=== PATIENT | male | born 1975 | race Caucasian/White ===

== ENCOUNTER 2019-04-12 13:49 | Observation (INO) | payer BC ==
[2019-04-12] MEDS ORDERED: solu-MEDROL 125 MG IV ONE ×2 (14:04→20:15)
[2019-04-12] MEDS ORDERED: Pepcid 20 MG VIAL IV ONE ×2 (14:04→14:12)
[2019-04-12] MEDS ORDERED: BENADRYL 50 MG/ML IV ONE (14:04)
--- NOTE | 2019-04-12 14:04 | ERPHSYRPT ---
- History of Present Illness Time Seen by Provider: 04/12/19 13:55 Source: patient, family Exam Limitations: no limitations Patient Subjective Stated Complaint: allergic reaction/swollen throat Triage Nursing Assessment: Patient ambulated into ED and transferred self to bed. Patient A+O X 3. Patient complains of swollen throat upon waking up at 0500. Patient denies pain or discomfort. Patient states he feels like he is having trouble swallowing causing him to panic. Patient's lungs clear a/p gloria. Throat noted to be swollen and red. O2 96% on room air. Patient denies any new meds or foods. Physician History: complaints of sore throat and a swollen uvula this morning. No shortness of breath. No rash Timing/Duration: today Severity: moderate Modifying Factors: Improves With: nothing Associated Symptoms: No nausea, No vomiting, No abdominal pain, No shortness of breath, No heartburn, No diaphoresis, No cough, No chills, No chest pain, No fever, No headaches, No loss of appetite, No malaise, No syncope, No seizure Allergies/Adverse Reactions: No Known Drug Allergies Allergy (Verified 04/12/19 13:52) Home Medications: Levothyroxine Sodium 1 tab PO DAILY 04/12/19 [History] Hx Tetanus, Diphtheria Vaccination/Date Given: Yes Hx Influenza Vaccination/Date Given: No Hx Pneumococcal Vaccination/Date Given: No Immunizations Up to Date: Yes - Review of Systems Constitutional: No Fever, No Chills Eyes: No Symptoms Ears, Nose, & Throat: No Symptoms, Throat Pain, Other (sswollen uvula) Respiratory: No Cough, No Dyspnea Cardiac: No Chest Pain, No Edema, No Syncope Abdominal/Gastrointestinal: No Abdominal Pain, No Nausea, No Vomiting, No Diarrhea Genitourinary Symptoms: No Dysuria Musculoskeletal: No Back Pain, No Neck Pain Skin: No Rash Neurological: No Dizziness, No Focal Weakness, No Sensory Changes Psychological: No Symptoms Endocrine: No Symptoms All Other Systems: Reviewed and Negative - Past Medical History Pertinent Past Medical History: Yes Neurological History: No Pertinent History ENT History: No Pertinent History Cardiac History: No Pertinent History Respiratory History: No Pertinent History Endocrine Medical History: Hypoglycemia Musculoskeletal History: No Pertinent History GI Medical History: No Pertinent History History: No Pertinent History Psycho-Social History: No Pertinent History Male Reproductive Disorders: No Pertinent History - Past Surgical History Past Surgical History: Yes Neuro Surgical History: No Pertinent History Cardiac: No Pertinent History Respiratory: No Pertinent History Gastrointestinal: No Pertinent History Genitourinary: No Pertinent History Musculoskeletal: No Pertinent History Male Surgical History: No Pertinent History Other Surgical History: ortho surgery - Social History Smoking Status: Former smoker Exposure to second hand smoke: No Drug Use: none Patient Lives Alone: No - Nursing Vital Signs Nursing Vital Signs: Initial Vital Signs Temperature 97.5 F 04/12/19 13:53 Pulse Rate 88 04/12/19 13:53 Respiratory Rate 18 04/12/19 13:53 Blood Pressure 148/118 04/12/19 13:53 O2 Sat by Pulse Oximetry 96 04/12/19 13:53 Pain Scale Pain Intensity 0 - Physical Exam General Appearance: no apparent distress, alert Eye Exam: PERRL/EOMI, eyes nml inspection Ears, Nose, Throat Exam: normal ENT inspection, TMs normal, pharynx normal, moist mucous membranes, TM abnormal (R), pharyngeal erythema, other (mild swelling of uvula.uvula is raised and inflamed. No clinical evidence of epiglottitis.) Neck Exam: normal inspection, non-tender, supple, full range of motion Respiratory Exam: normal breath sounds, lungs clear, No respiratory distress Cardiovascular Exam: regular rate/rhythm, normal heart sounds, normal peripheral pulses Gastrointestinal/Abdomen Exam: soft, normal bowel sounds, No tenderness, No mass Back Exam: normal inspection, normal range of motion, No CVA tenderness, No vertebral tenderness Extremity Exam: normal inspection, normal range of motion, pelvis stable Neurologic Exam: alert, oriented x 3, cooperative, normal mood/affect, nml cerebellar function, nml station & gait, sensation nml, No motor deficits Skin Exam: normal color, warm, dry, No rash Lymphatic Exam: No adenopathy SpO2: 96 Ordered Tests: Active Orders 24 hr Category Date Time Status IV Insertion STAT Care 04/12/19 14:04 Active Medication Summary Discontinued Medications Generic Name Dose Route Start Last Admin Trade Name Freq PRN Reason Stop Dose Admin Azithromycin 500 mg 04/12/19 15:23 Zithromax 250 Mg Tablet PO 04/12/19 15:24 STAT ONE Diphenhydramine HCl 25 mg 04/12/19 14:04 04/12/19 14:17 Benadryl 50 Mg/Ml IV 04/12/19 14:05 25 mg STAT ONE Administration Diphenhydramine HCl Confirm 04/12/19 14:12 Benadryl 50 Mg/Ml Administered 04/12/19 14:13 Dose 50 mg .ROUTE .STK-MED ONE Famotidine 20 mg 04/12/19 14:04 04/12/19 14:14 Pepcid 20 Mg Vial IV 04/12/19 14:05 20 mg STAT ONE Administration Famotidine Confirm 04/12/19 14:12 Pepcid 20 Mg Vial Administered 04/12/19 14:13 Dose 20 mg IV .STK-MED ONE Methylprednisolone Sodium Succinate 125 mg 04/12/19 14:04 04/12/19 14:16 Solu-Medrol 125 Mg IV 04/12/19 14:05 125 mg STAT ONE Administration Methylprednisolone Sodium Succinate Confirm 04/12/19 14:12 Solu-Medrol 125 Mg Administered 04/12/19 14:13 Dose 125 mg .ROUTE .STK-MED ONE Lab/Rad Data: Laboratory Results 04/12/19 Range/Units 14:15 Group A Strep Antibody NEGATIVE (NEGATIVE) - Progress Progress: improved Progress Note: 04/12/19 15:19 patient resting comfortably in the ER. And no shortness of breath or rash or stridor. No respiratory distress. No clinical evidence of epiglottitis or retro pharyngeal abscess No acute life or limb threatening condition. I offered admission for observation to patient. The patient refused. Patient's girlfriend and mother present in the room. They understood the risk and he decided to leave against medical advise because today is [place] and he doesn't want to stay in the hospital on [place]. 04/12/19 15:22 patient changed his mind and now he wants to stay in the hospital. Discussed with : Sade Will see patient in: hospital (observation) Counseled pt/family regarding: diagnosis, need for follow-up - Departure Departure Disposition: Observation Clinical Impression: Sore throat, Throat pain Condition: Good Critical Care Time: No Referrals: MATT DE PAZ [Primary Care Provider] - 04/13/19 Prescriptions: Azithromycin 250 mg [Zithromax 250 MG TABLET] 250 mg PO ZPACK #6 tablet
[2019-04-12] MEDS ORDERED: BENADRYL 50 MG/ML ONE (14:12)
[2019-04-12] MEDS ORDERED: solu-MEDROL 125 MG ONE ×2 (14:12→20:02)
[2019-04-12] MEDS ORDERED: Zithromax 250 MG TABLET PO ONE (15:23)
[2019-04-12] MEDS ORDERED: Zithromax 250 MG TABLET ONE (15:28)
[2019-04-12] MEDS ORDERED: Zithromax 500 MG/ 250 ML NaCl Premix 500 MG/250 ML IVPB IV STA (15:37)
[2019-04-12] MEDS ORDERED: Zithromax 500 MG/ 250 ML NaCl Premix 500 MG/250 ML IVPB IV ONE (15:38)
[2019-04-12 15:54] LABS: Absolute Neutrophil Ct (ANC) 7.28 (1.4-6.9); BASOPHIL % 0.5 % (0.0-0.4); Basophil (Absolute #) 0.06 (0-0.4); Eosinophil % 2.9 % (0.00-5.0); Eosinophil (Absolute #) 0.33 (0-0.5); Hematocrit 47.5 % (42-50); Hemoglobin 16.5 gm/dl (12.5-18.0); Lymphocyte (Absolute #) 2.72 (1.0-4.6); Mean Cell Volume 89.3 fl (78-100); Mean Corpuscular Hgb Concent. 34.7 g/dl (32-36); Mean Platelet Volume 11.3 fl (6-9.5); Monocyte (Absolute #) 0.96 (0.0-1.3); Monocytes % 8.5 % (0.0-12.0); Neutrophil % 64.1 % (36.0-66.0); Platelet Count 225 K/mm3 (150-450); Red Blood Count 5.32 M/mm3 (4.1-5.6); Red Cell Distribution Width 13.1 % (11.5-14.0); White Blood Count 11.4 K/mm3 (4.0-10.5)
[2019-04-12 15:59] LABS: ALBUMIN 4.4 g/dL (3.5-5.0); ALKALINE PHOSPHATASE 96 U/L (38-126); ANION GAP 12.3 MEQ/L (5-15); BLOOD UREA NITROGEN 15 mg/dL (9-20); CHLORIDE 106 mmol/L (98-107); Calcium 9.8 mg/dL (8.4-10.2); Carbon Dioxide 27 mmol/L (22-30); Creatinine 1 0.93 mg/dL (0.66-1.25); Glucose 86 mg/dL (74-106); Potassium 4.1 mmol/L (3.5-5.1); SGOT/AST 58 U/L (17-59); SGPT/ALT 115 U/L (0-50); SODIUM 141 mmol/L (137-145); Total Protein 8.1 g/dL (6.3-8.2)
[2019-04-12] MEDS ORDERED: Sodium Chloride 0.9% 1000 ML 1,000 ML IV SCH (16:02)
[2019-04-12] MEDS ORDERED: Sodium Chloride 0.9% 1000 ML 1,000 ML ONE (16:35)
[2019-04-12 21:08] VITALS: BP 134/75; PULSE 87; O2SAT 95
--- NOTE | 2019-05-14 15:56 | PCM.SSS ---
History of Present Illness - Chief Complaint Chief Complaint: throat pain for 1 day History of Present Illness: is a 44 year old male.complaints of sore throat and a swollen uvula this morning. No shortness of breath. No rash Timing/Duration: today Severity: moderate Modifying Factors: Improves With: nothing Associated Symptoms: No nausea, No vomiting, No abdominal pain, No shortness of breath, No heartburn, No diaphoresis, No cough, No chills, No chest pain, No fever, No headaches, No loss of appetite, No malaise, No syncope, No seizure - Review of Systems Constitutional: No Fever, No Chills Eyes: No Symptoms Ears, Nose, & Throat: Throat Pain, Throat Swelling Respiratory: No Cough, No Short Of Breath Cardiac: No Chest Pain, No Edema, No Syncope Abdominal/Gastrointestinal: No Abdominal Pain, No Nausea, No Vomiting, No Diarrhea Genitourinary Symptoms: No Dysuria Musculoskeletal: No Back Pain, No Neck Pain Skin: No Rash Neurological: No Dizziness, No Focal Weakness, No Sensory Changes Psychological: No Symptoms Endocrine: No Symptoms Hematologic/Lymphatic: No Symptoms Immunological/Allergic: No Symptoms Medications & Allergies Home Medications: Home Medication List Levothyroxine Sodium 150 mcg PO DAILY 04/12/19 [History Confirmed 04/12/19] Allergies/Adverse Reactions: Allergies Allergy/AdvReac Type Severity Reaction Status Date / Time No Known Drug Allergies Allergy Verified 04/12/19 13:52 - Past Medical History Past Medical History: Yes Neurological History: No Pertinent History ENT History: No Pertinent History Cardiac History: No Pertinent History Respiratory History: No Pertinent History Endocrine Medical History: Hypoglycemia Musculoskelatal History: No Pertinent History GI Medical History: No Pertinent History History: No Pertinent History Pyscho-Social History: No Pertinent History Male Reproductive Disorders: No Pertinent History - Past Surgical History Past Surgical History: Yes Neuro Surgical History: No Pertinent History Cardiac History: No Pertinent History Respiratory Surgery: No Pertinent History GI Surgical History: No Pertinent History Genitourinary Surgical Hx: No Pertinent History Musculskeletal Surgical Hx: No Pertinent History Male Surgical History: No Pertinent History Other Surgical History: ortho surgery - Social History Smoking Status: Former smoker Exposure to second hand smoke: No Alcohol: Occasionally Drug Use: none - Physical Exam General Appearance: no apparent distress, alert Neurologic Exam: alert, oriented x 3, cooperative, normal mood/affect, nml cerebellar function, nml station & gait, sensation nml, No motor deficits Eye Exam: PERRL/EOMI, eyes nml inspection Ears, Nose, Throat Exam: normal ENT inspection, TMs normal, pharynx normal, moist mucous membranes, pharyngeal erythema Neck Exam: normal inspection, non-tender, supple, full range of motion Respiratory Exam: normal breath sounds, lungs clear, No respiratory distress Cardiovascular Exam: regular rate/rhythm, normal heart sounds, normal peripheral pulses Gastrointestinal/Abdomen Exam: soft, normal bowel sounds, No tenderness, No mass Back Exam: normal inspection, normal range of motion, No CVA tenderness, No vertebral tenderness Extremity Exam: normal inspection, normal range of motion, pelvis stable Skin Exam: normal color, warm, dry, No rash Lymphatic Exam: No adenopathy Assessment/Plan (1) Sore throat Status: Acute Assessment & Plan: Last Vital Signs Temp 97.8 F 04/12/19 20:00 Pulse 87 04/12/19 20:00 Resp 18 04/12/19 20:00 BP 134/75 04/12/19 20:00 Pulse Ox 95 04/12/19 20:00 Allergies No Known Drug Allergies Allergy (Verified 04/12/19 13:52) Code(s): J02.9 - ACUTE PHARYNGITIS, UNSPECIFIED (2) Throat pain Status: Acute Code(s): R07.0 - PAIN IN THROAT Hospital Summary - Hospital Course Hospital Course: Chief Complaint Diagnosis Allergic reaction; throat pain Allergies Allergy/AdvReac Type Severity Reaction Status Date / Time No Known Drug Allergies Allergy Verified 04/12/19 13:52 Home Medications Medication Instructions Recorded Confirmed Last Taken Type Levothyroxine Sodium 150 mcg PO DAILY 04/12/19 04/12/19 04/11/19 History 150 mcg Current Medications Discontinued Medications Generic Name Dose Route Start Last Admin Trade Name Gunnerq PRN Reason Stop Dose Admin Azithromycin 500 mg 04/12/19 15:23 04/12/19 15:29 Zithromax 250 Mg Tablet PO 04/12/19 15:24 500 mg STAT ONE Administration Azithromycin Confirm 04/12/19 15:28 Zithromax 250 Mg Tablet Administered 04/12/19 15:29 Dose 500 mg .ROUTE .STK-MED ONE Diphenhydramine HCl 25 mg 04/12/19 14:04 04/12/19 14:17 Benadryl 50 Mg/Ml IV 04/12/19 14:05 25 mg STAT ONE Administration Diphenhydramine HCl Confirm 04/12/19 14:12 Benadryl 50 Mg/Ml Administered 04/12/19 14:13 Dose 50 mg .ROUTE .STK-MED ONE Famotidine 20 mg 04/12/19 14:04 04/12/19 14:14 Pepcid 20 Mg Vial IV 04/12/19 14:05 20 mg STAT ONE Administration Famotidine Confirm 04/12/19 14:12 Pepcid 20 Mg Vial Administered 04/12/19 14:13 Dose 20 mg IV .STK-MED ONE Azithromycin 500 mg in 250 mls @ 250 mls/hr 04/12/19 15:37 04/12/19 15:42 Zithromax 500 Mg/ 250 Ml Nacl Premix IV 04/12/19 16:36 250 ml/hr STAT STA 250 mls/hr Administration Azithromycin Confirm 04/12/19 15:38 Zithromax 500 Mg/ 250 Ml Nacl Premix Administered 04/12/19 15:39 Dose 500 mg in 250 mls @ ud IV .STK-MED ONE Sodium Chloride 1,000 mls @ 100 mls/hr 04/12/19 16:02 Sodium Chloride 0.9% 1000 Ml IV 05/12/19 16:01 .Q10H NARCISA Sodium Chloride Confirm 04/12/19 16:35 Sodium Chloride 0.9% 1000 Ml Administered 04/12/19 16:36 Dose 1,000 mls @ ud .ROUTE .STK-MED ONE Methylprednisolone Sodium Succinate 125 mg 04/12/19 14:04 04/12/19 14:16 Solu-Medrol 125 Mg IV 04/12/19 14:05 125 mg STAT ONE Administration Methylprednisolone Sodium Succinate Confirm 04/12/19 14:12 Solu-Medrol 125 Mg Administered 04/12/19 14:13 Dose 125 mg .ROUTE .STK-MED ONE Methylprednisolone Sodium Succinate 125 mg 04/12/19 20:15 04/12/19 20:03 Solu-Medrol 125 Mg IV 04/12/19 20:16 125 mg ONCE ONE Administration Methylprednisolone Sodium Succinate Confirm 04/12/19 20:02 Solu-Medrol 125 Mg Administered 04/12/19 20:03 Dose 125 mg .ROUTE .STK-MED ONE - Vitals & Intake/Output Vital Signs: Vital Signs Temperature 97.8 F 04/12/19 20:00 Pulse Rate 87 04/12/19 20:00 Respiratory Rate 18 04/12/19 20:00 Blood Pressure 134/75 04/12/19 20:00 O2 Sat by Pulse Oximetry 95 04/12/19 20:00 - Lab Result Diagrams: 04/12/19 15:28 04/12/19 15:28 - Discharge Discharge Date: 04/12/19 Disposition: Home, Self-Care Condition: Stable Prescriptions: No Action Levothyroxine Sodium 150 mcg PO DAILY Instructions: Sore Throat, Adult (DC) Additional Instructions: Make appointment with Dr Gan to follow-up after discharge. [phone]
== END 2019-04-12 21:15 | disposition home or self-care (01) ==
LOC: ED 13:49 → MED SURG 16:01
PROVIDERS: ADMIT General Practice; ATTEND General Practice
DX: J02.9 Acute pharyngitis, unspecified (principal); R07.0 Pain in throat
CPT/HCPCS: 36000; 36415; 80053; 85025; 87651; 96365; 96374; 96375; 99285; G0378; J0456; J1200; J2930; A9270-GY

== ENCOUNTER 2023-12-21 08:53 | Observation (INO) | payer BC ==
--- NOTE | 2023-12-21 09:19 | ERPHSYRPT ---
- History of Present Illness Time Seen by Provider: 12/21/23 09:10 Source: patient Exam Limitations: no limitations Physician History: Patient is a 48-year-old male presents to emergency department for evaluation of sore throat. Symptoms started Wednesday. Patient reports he went to an urgent care on Wednesday then again on Wednesday. Patient was treated with a dose of s teroids and an antibiotic injection. Patient is currently on clindamycin. Symptoms are worsening patient unable to eat tolerate p.o. or swallow. Patient states he feels dehydrated he reports his urine is concentrated. No obvious fevers. Symptoms are progressive. Symptoms are moderate in intensity. No specific worsening or improving factors. Patient denies a history of the same. Patient has a history of hypothyroidism otherwise healthy. He voices no other complaints or concerns at this time. Portions of this note were created with voice recognition technology. There may be grammatical, spelling, punctuation or sound alike errors Timing/Duration: day(s) (6 days) Severity: moderate Modifying Factors: Improves With: nothing Associated Symptoms: weakness (Generalized weakness) Allergies/Adverse Reactions: No Known Drug Allergies Allergy (Verified 12/21/23 09:07) Home Medications: Levothyroxine Sodium 88 Mcg [Synthroid 88 Mcg] 88 mcg PO DAILY 12/21/23 [History] clindamycin HCL [Clindamycin HCl] 1 ea TID 12/21/23 [History] Hx Tetanus, Diphtheria Vaccination/Date Given: Yes Hx Influenza Vaccination/Date Given: No Hx Pneumococcal Vaccination/Date Given: No - Review of Systems Constitutional: No Symptoms, No Fever, No Chills Eyes: No Symptoms Ears, Nose, & Throat: No Symptoms Respiratory: No Symptoms, No Cough, No Dyspnea Cardiac: No Symptoms, No Chest Pain, No Edema, No Syncope Abdominal/Gastrointestinal: No Symptoms, No Abdominal Pain, No Nausea, No Vomiting, No Diarrhea Genitourinary Symptoms: No Symptoms, No Dysuria Musculoskeletal: No Symptoms, No Back Pain, No Neck Pain Skin: No Symptoms, No Rash Neurological: No Symptoms, No Dizziness, No Focal Weakness, No Sensory Changes Psychological: No Symptoms Endocrine: No Symptoms Hematologic/Lymphatic: No Symptoms Immunological/Allergic: No Symptoms All Other Systems: Reviewed and Negative - Past Medical History Pertinent Past Medical History: Yes Neurological History: No Pertinent History ENT History: No Pertinent History Cardiac History: No Pertinent History Respiratory History: No Pertinent History Endocrine Medical History: Hypoglycemia Musculoskeletal History: No Pertinent History GI Medical History: No Pertinent History History: No Pertinent History Psycho-Social History: No Pertinent History Male Reproductive Disorders: No Pertinent History - Past Surgical History Past Surgical History: Yes Neuro Surgical History: No Pertinent History Cardiac: No Pertinent History Respiratory: No Pertinent History Gastrointestinal: No Pertinent History Genitourinary: No Pertinent History Musculoskeletal: No Pertinent History Male Surgical History: No Pertinent History Other Surgical History: ortho surgery - Social History Smoking Status: Former smoker Exposure to second hand smoke: No Drug Use: none Patient Lives Alone: No - Nursing Vital Signs Nursing Vital Signs: Initial Vital Signs Temperature 97.7 F 12/21/23 09:06 Pulse Rate 106 H 12/21/23 09:06 Respiratory Rate 18 12/21/23 09:06 Blood Pressure 145/107 12/21/23 09:06 O2 Sat by Pulse Oximetry 100 12/21/23 09:06 Pain Scale Pain Intensity 4 - Physical Exam General Appearance: no apparent distress, alert Eye Exam: PERRL/EOMI, eyes nml inspection Ears, Nose, Throat Exam: normal ENT inspection, TMs normal, moist mucous membranes, other (Enlarged tonsils bilateral tonsillar exudate) Neck Exam: normal inspection, non-tender, supple, full range of motion Respiratory Exam: normal breath sounds, lungs clear, airway intact, No respiratory distress Cardiovascular Exam: regular rate/rhythm, normal heart sounds, normal peripheral pulses Gastrointestinal/Abdomen Exam: soft, normal bowel sounds, No tenderness, No mass Back Exam: normal inspection, normal range of motion, No CVA tenderness, No vertebral tenderness Extremity Exam: normal inspection, normal range of motion, pelvis stable Neurologic Exam: alert, oriented x 3, cooperative, normal mood/affect, nml cerebellar function, nml station & gait, sensation nml, No motor deficits Skin Exam: normal color, warm, dry, No rash Lymphatic Exam: No adenopathy SpO2 Interpretation: normal SpO2: 100 O2 Delivery: Room Air - Course Nursing assessment & vital signs reviewed: Yes Ordered Tests: Active Orders 24 hr Category Date Time Status Egg Crater STAT Care 12/21/23 09:06 Active IV Insertion STAT Care 12/21/23 09:05 Active Pulse Oximetry (ED) STAT Care 12/21/23 09:05 Active NECK WITH CONTRAST [CT] Stat Exams 12/21/23 09:07 Completed BLOOD CULTURE Stat Lab 12/21/23 09:20 Received CBC W DIFF Stat Lab 12/21/23 09:18 Completed CMP Stat Lab 12/21/23 09:18 Completed MONO SCREEN Stat Lab 12/21/23 09:18 Completed TROPONIN Q4H Lab 12/21/23 09:30 Completed TROPONIN Q4H Lab 12/21/23 14:30 Ordered TROPONIN Q4H Lab 12/21/23 18:30 Ordered Urine Triage Profile Stat Lab 12/21/23 10:20 Ordered Transfer Order Routine Transfer 12/21/23 Ordered Medication Summary Discontinued Medications Generic Name Dose Route Start Last Admin Trade Name Freq PRN Reason Stop Dose Admin Dexamethasone Sodium Phosphate 10 mg 12/21/23 09:07 12/21/23 09:26 Dexamethasone Sod Phosphate 10 Mg/Ml IV 12/21/23 09:08 10 mg STAT ONE Administration Dexamethasone Sodium Phosphate Confirm 12/21/23 09:24 Dexamethasone Sod Phosphate 10 Mg/Ml Administered 12/21/23 09:25 Dose 10 mg .ROUTE .STK-MED ONE Sodium Chloride 1,000 mls @ 999 mls/hr 12/21/23 09:05 12/21/23 09:26 Sodium Chloride 0.9% 1000 Ml IV 12/21/23 10:05 999 mls/hr .Q1H1M STA Administration Sodium Chloride Confirm 12/21/23 09:24 Sodium Chloride 0.9% 1000 Ml Administered 12/21/23 09:25 Dose 1,000 mls @ ud .ROUTE .STK-MED ONE Clindamycin HCl/Dextrose 900 mg in 50 mls @ 100 mls/hr 12/21/23 10:52 09/07/10 11:04 Clindamycin-D5w 900 Mg/50 Ml IV 12/21/23 11:21 100 ml/hr STAT STA 100 mls/hr Administration Clindamycin HCl/Dextrose Confirm 12/21/23 11:00 Clindamycin-D5w 900 Mg/50 Ml Administered 12/21/23 11:01 Dose 900 mg in 50 mls @ ud IV .STK-MED ONE Ketorolac Tromethamine 30 mg 12/21/23 09:08 12/21/23 09:26 Ketorolac Tromethamine 30 Mg/Ml Inj IV 12/21/23 09:09 30 mg STAT ONE Administration Ketorolac Tromethamine Confirm 12/21/23 09:24 Ketorolac Tromethamine 30 Mg/Ml Inj Administered 12/21/23 09:25 Dose 30 mg .ROUTE .[facility]-MED ONE Lab/Rad Data: Laboratory Result Diagrams 12/21/23 09:18 12/21/23 09:18 Laboratory Results 12/21/23 12/21/23 12/21/23 Range/Units 09:30 09:20 09:18 WBC (4.23-9.07) x10^3/uL RBC (4.63-6.08) x10^6/uL Hgb (13.7-17.5) g/dL Hct (40.1-51.0) % MCV (79.0-92.2) fL MCH (25.7-32.2) pg MCHC (32.3-36.5) g/dL RDW (11.6-14.4) % Plt Count (163-337) x10^3/uL MPV (9.4-12.4) fL Gran % (34.0-67.9) % Immature Gran % (Auto) (0.001-0.429) % Nucleat RBC Rel Count (0.00-0.2) % Eos # (Auto) (0.04-0.54) x10^3/uL Immature Gran # (Auto) (0.001-0.031) x10^3u/L Absolute Lymphs (auto) (1.32-3.57) x10^3/uL Absolute Monos (auto) (0.30-0.82) x10^3/uL Absolute Nucleated RBC (0.00-0.012) x10^3u/L Lymphocytes % (21.8-53.1) % Monocytes % (5.3-12.2) % Eosinophils % (0.8-7.0) % Basophils % (0.2-1.2) % Absolute Granulocytes (1.78-5.38) x10^3/uL Basophils # (0.01-0.08) x10^3/uL Sodium (135-145) mmol/L Potassium (3.5-5.1) mmol/L Chloride (98-107) mmol/L Carbon Dioxide (22-30) mmol/L Anion Gap (5-15) MEQ/L BUN (9-20) mg/dL Creatinine (0.66-1.25) mg/dL Estimated GFR ML/MIN Glucose (74-106) mg/dL Calcium (8.4-10.2) mg/dL Total Bilirubin (0.2-1.3) mg/dL AST (17-59) U/L ALT (0-50) U/L Alkaline Phosphatase (38-126) U/L Troponin I < 0.012 (0.000-0.033) ng/mL Serum Total Protein (6.3-8.2) g/dL Albumin (3.5-5.0) g/dL Monoscreen NEGATIVE (NEGATIVE) Influenza Type A Ag NEGATIVE (NEGATIVE) Influenza Type B Ag NEGATIVE (NEGATIVE) RSV (PCR) NEGATIVE (NEGATIVE) SARS-CoV-2 (PCR) NEGATIVE (NEGATIVE) 12/21/23 12/21/23 Range/Units 09:18 09:18 WBC 9.2 H (4.23-9.07) x10^3/uL RBC 5.17 (4.63-6.08) x10^6/uL Hgb 15.7 (13.7-17.5) g/dL Hct 45.9 (40.1-51.0) % MCV 88.8 (79.0-92.2) fL MCH 30.4 (25.7-32.2) pg MCHC 34.2 (32.3-36.5) g/dL RDW 12.2 (11.6-14.4) % Plt Count 208 (163-337) x10^3/uL MPV 10.3 (9.4-12.4) fL Gran % 74.8 H (34.0-67.9) % Immature Gran % (Auto) 0.4 (0.001-0.429) % Nucleat RBC Rel Count 0.0 (0.00-0.2) % Eos # (Auto) 0.02 L (0.04-0.54) x10^3/uL Immature Gran # (Auto) 0.04 H (0.001-0.031) x10^3u/L Absolute Lymphs (auto) 1.22 L (1.32-3.57) x10^3/uL Absolute Monos (auto) 0.97 H (0.30-0.82) x10^3/uL Absolute Nucleated RBC 0.00 (0.00-0.012) x10^3u/L Lymphocytes % 13.3 L (21.8-53.1) % Monocytes % 10.6 (5.3-12.2) % Eosinophils % 0.2 L (0.8-7.0) % Basophils % 0.7 (0.2-1.2) % Absolute Granulocytes 6.86 H (1.78-5.38) x10^3/uL Basophils # 0.06 (0.01-0.08) x10^3/uL Sodium 141 (135-145) mmol/L Potassium 4.0 (3.5-5.1) mmol/L Chloride 102 (98-107) mmol/L Carbon Dioxide 25 (22-30) mmol/L Anion Gap 17.2 H (5-15) MEQ/L BUN 14 (9-20) mg/dL Creatinine 1.01 (0.66-1.25) mg/dL Estimated GFR 92.9 ML/MIN Glucose 121 H (74-106) mg/dL Calcium 9.5 (8.4-10.2) mg/dL Total Bilirubin 0.90 (0.2-1.3) mg/dL AST 36 (17-59) U/L ALT 47 (0-50) U/L Alkaline Phosphatase 66 (38-126) U/L Troponin I (0.000-0.033) ng/mL Serum Total Protein 8.2 (6.3-8.2) g/dL Albumin 4.6 (3.5-5.0) g/dL Monoscreen (NEGATIVE) Influenza Type A Ag (NEGATIVE) Influenza Type B Ag (NEGATIVE) RSV (PCR) (NEGATIVE) SARS-CoV-2 (PCR) (NEGATIVE) - Progress Progress: improved Progress Note: 48-year-old male presents to emergency department for evaluation of of progres sive throat pain, odynophagia. Patient was seen at 2 outside clinics. Patient failed steroids and oral antibiotics. Patient unable to eat. Patient has not produced urine today. Physical exam reveals large tonsillar exudate, tonsillitis. Patient is progressively worsening. Family and patient requesting admission. Case discussed with hospitalist Dr. Conklin who accepts admission at 11:28 AM. Plan of care discussed with patient and his . They agree to admission at [facility] for further evaluation and treatment. Portions of this note were created with voice recognition technology. There may be grammatical, spelling, punctuation or sound alike errors Complexity of problem addressed is moderate acute complicated. No critical care time. Complexity of data reviewed and analyzed is extensive. Test ordered test reviewed results analyzed and correlated clinically with history and physical exam. Risk of complication and or risk of morbidity/mortality of patient management is high. Patient requires hospitalization for further evaluation and treatment. Vital stable. Time spent admit patient approximately 20 minutes. Plan of care established for shared decision making. No social determinants of health present impede follow-up. Portions of this note were created with voice recognition technology. There may be grammatical, spelling, punctuation or sound alike errors 12/21/23 11:39 12/21/23 11:41 Counseled pt/family regarding: lab results, diagnosis, rad results - Departure Departure Disposition: Observation Clinical Impression: Dehydration, Sore throat, Anorexia, Generalized weakness, Odynophagia, Leukocytosis, High anion gap metabolic acidosis Condition: Stable Critical Care Time: No Referrals: JGINA VALDOVINOS NP [Primary Care Provider] - Follow up/PCP as directed
[2023-12-21] MEDS ORDERED: Sodium Chloride 0.9% 1000 ML 1,000 ML ONE (09:24)
[2023-12-21] MEDS ORDERED: DECADRON 10MG INJ. ONE (09:24)
[2023-12-21] MEDS ORDERED: TORAdol 30 mg Injection ONE (09:24)
[2023-12-21] MEDS: TORAdol 30 mg Injection IV ONE (09:26)
[2023-12-21] MEDS: DECADRON 10MG INJ. IV ONE (09:26)
[2023-12-21] MEDS: Sodium Chloride 0.9% 1000 ML 1,000 ML IV STA (09:26)
[2023-12-21 09:31] LABS: Absolute Neutrophil Ct (ANC) 6.86 x10^3/uL (1.78-5.38); BASOPHIL % 0.7 % (0.2-1.2); Basophil (Absolute #) 0.06 x10^3/uL (0.01-0.08); Eosinophil % 0.2 % (0.8-7.0); Eosinophil (Absolute #) 0.02 x10^3/uL (0.04-0.54); Hematocrit 45.9 % (40.1-51.0); Hemoglobin 15.7 g/dL (13.7-17.5); IMMATURE GRAN # 0.04 x10^3u/L (0.001-0.031); IMMATURE GRAN % 0.4 % (0.001-0.429); Lymphocyte (Absolute #) 1.22 x10^3/uL (1.32-3.57); Lymphocytes % 13.3 % (21.8-53.1); Mean Cell Volume 88.8 fL (79.0-92.2); Mean Corpuscular Hemoglobin 30.4 pg (25.7-32.2); Mean Corpuscular Hgb Concent. 34.2 g/dL (32.3-36.5); Mean Platelet Volume 10.3 fL (9.4-12.4); Monocyte (Absolute #) 0.97 x10^3/uL (0.30-0.82); Monocytes % 10.6 % (5.3-12.2); Neutrophil % 74.8 % (34.0-67.9); Platelet Count 208 x10^3/uL (163-337); Red Blood Count 5.17 x10^6/uL (4.63-6.08); Red Cell Distribution Width 12.2 % (11.6-14.4); White Blood Count 9.2 x10^3/uL (4.23-9.07)
[2023-12-21 09:44] LABS: ALBUMIN 4.6 g/dL (3.5-5.0); ANION GAP 17.2 MEQ/L (5-15); BILIRUBIN,TOTAL 0.9 mg/dL (0.2-1.3); Calcium 9.5 mg/dL (8.4-10.2); Creatinine 1 1.01 mg/dL (0.66-1.25); EST GLOMERULAR FILTRATION RATE 92.9 ML/MIN; Total Protein 8.2 g/dL (6.3-8.2)
[2023-12-21 10:07] LABS: INFLUENZA A NEGATIVE (NEGATIVE); INFLUENZA B NEGATIVE (NEGATIVE); RESPIRATORY SYNCTIAL VIRUS NEGATIVE (NEGATIVE); SARS-CoV-2 Xpert Express NEGATIVE (NEGATIVE)
--- NOTE | 2023-12-21 10:33 | XRAY ---
Indication: Sore throat. Pain. Abscess. Multiple contiguous axial images obtained through the neck using 80 cc Isovue 370 contrast. Comparison: None Parotid and submandibular glands are bilaterally symmetric. Markedly enlarged and enhancing bilateral palatine tonsils favors tonsillitis and narrows the oropharynx. Left tonsil demonstrates 5 x 8 mm microabscess. A few prominent bilateral level I and level II cervical lymph nodes presumed reactive, largest on left measuring 2.1 x 1.7 cm. Major arteries/veins are normal in course and caliber. Thyroid gland enhances homogeneously. Visualized osseous structures/cervical spine intact. Base of brain and lung apices unremarkable. Impression: CT features favoring bilateral tonsillitis with left microabscess and reactive bilateral cervical lymphadenopathy.
[2023-12-21] MEDS ORDERED: CLINDAMYCIN-D5W 900 MG/50 ML*** 900 MG/50 ML BAG IV ONE (11:00)
[2023-12-21] MEDS: CLINDAMYCIN-D5W 900 MG/50 ML*** 900 MG/50 ML BAG IV STA (11:04)
--- NOTE | 2023-12-21 13:53 | PCM.HP ---
History of Present Illness - Chief Complaint Chief Complaint: Tonsillitis, dehydration Date: 12/21/23 History of Present Illness: is a 48 year old male with a pmhx of HTN and hypothyroid who presented to ED 12/21/23 with complaints of a sore throat. Patient reports symptoms initially started 12/15/23 with a sore throat, subjective fevers, and chills. He sought OP treatment at urgent care on 12/18/23. He states he tested negative for strep but was given abx which did not relieve symptoms. He presented to his PCP 12/20/23 and was given a steroid and antibiotic injection - again with no relief of symptoms. He has been unable to eat/drink. Upon arrival to ED patient was tachycardic and hypertensive. CT neck showing tonsilitis with left micro abscess. Lab findings with mild leukocytosis and elevated anion gap. [place]/strep screen negative. Patient given IVF bolus, dexamethasone, toradol, and clindamycin. Plan for continued steroid/abx. - Review of Systems Constitutional: Fever, Chills, Weakness Eyes: No Symptoms Ears, Nose, & Throat: Throat Pain, Throat Swelling, Painful Swallowing Respiratory: Cough Cardiac: No Symptoms Abdominal/Gastrointestinal: No Symptoms Genitourinary Symptoms: No Symptoms Musculoskeletal: No Symptoms Skin: No Symptoms Neurological: No Symptoms Psychological: No Symptoms Endocrine: No Symptoms Hematologic/Lymphatic: No Symptoms Immunological/Allergic: No Symptoms Medications & Allergies Home Medications: Home Medication List Allopurinol 100 mg [Zyloprim 100 mg] 100 mg PO DAILY 12/21/23 [History Confirmed 12/21/23] Levothyroxine Sodium 88 Mcg [Synthroid 88 Mcg] 88 mcg PO DAILY 12/21/23 [History Confirmed 12/21/23] Allergies/Adverse Reactions: Allergies Allergy/AdvReac Type Severity Reaction Status Date / Time No Known Drug Allergies Allergy Verified 12/21/23 13:09 - Past Medical History Past Medical History: Yes Neurological History: No Pertinent History ENT History: No Pertinent History Cardiac History: No Pertinent History Respiratory History: No Pertinent History Endocrine Medical History: Hypothyroidism Musculoskelatal History: No Pertinent History GI Medical History: No Pertinent History History: No Pertinent History Pyscho-Social History: No Pertinent History Male Reproductive Disorders: No Pertinent History Comment: hx of hypertension but no longer having issues with it - Past Surgical History Past Surgical History: Yes Neuro Surgical History: No Pertinent History Cardiac History: No Pertinent History Respiratory Surgery: No Pertinent History GI Surgical History: No Pertinent History Genitourinary Surgical Hx: No Pertinent History Musculskeletal Surgical Hx: No Pertinent History Male Surgical History: No Pertinent History Other Surgical History: Left hand surgery when younger - Social History Smoking Status: Former smoker Exposure to second hand smoke: No Alcohol: Occasionally Drug Use: none - Social Determinants of Health Will the patient participate in the screening: Yes Do you worry about a steady place to live?: No Do you have any problems with any of the following?: No known problems In the past 12 months,have you had to go without utilities?: No Have you or anyone in your house had to go without enough: No Transportation Issues: No Has anyone in your support network made you feel unsafe?: No Does the patient want assistance with any of the above?: No - Physical Exam Vital Signs: Vital Signs - 24 hr Temp Pulse Resp BP BP Pulse Ox 12/21/23 13:20 97.3 F 75 16 171/108 96 12/21/23 13:16 97.3 F 75 18 171/108 96 12/21/23 13:00 78 18 150/99 95 12/21/23 12:30 70 16 149/109 97 12/21/23 12:00 140/98 94 L 12/21/23 11:42 100 12/21/23 11:30 145/100 93 L 12/21/23 11:13 139/101 94 L 12/21/23 11:12 88 L 12/21/23 11:10 95 12/21/23 11:00 83 18 139/101 94 L 12/21/23 10:50 93 L 12/21/23 10:40 94 L 12/21/23 10:30 93 L 12/21/23 10:20 92 L 12/21/23 10:10 92 L 12/21/23 10:00 78 16 90 L 12/21/23 09:50 94 L 12/21/23 09:40 88 16 93 L 12/21/23 09:09 100 12/21/23 09:06 97.7 F 106 H 18 145/107 100 General Appearance: no apparent distress Neurologic Exam: alert, oriented x 3, cooperative Eye Exam: PERRL/EOMI Ears, Nose, Throat Exam: pharyngeal erythema, tonsillar exudate Neck Exam: full range of motion Respiratory Exam: normal breath sounds, lungs clear Cardiovascular Exam: regular rate/rhythm, normal heart sounds Gastrointestinal/Abdomen Exam: soft, normal bowel sounds Rectal Exam: deferred Back Exam: normal inspection Extremity Exam: normal inspection Skin Exam: normal color Results - Labs Lab/Micro Results: Lab Results-Last 24 Hours 12/21/23 12/21/23 12/21/23 Range/Units 09:18 09:18 09:18 WBC 9.2 H (4.23-9.07) x10^3/uL RBC 5.17 (4.63-6.08) x10^6/uL Hgb 15.7 (13.7-17.5) g/dL Hct 45.9 (40.1-51.0) % MCV 88.8 (79.0-92.2) fL MCH 30.4 (25.7-32.2) pg MCHC 34.2 (32.3-36.5) g/dL RDW 12.2 (11.6-14.4) % Plt Count 208 (163-337) x10^3/uL MPV 10.3 (9.4-12.4) fL Gran % 74.8 H (34.0-67.9) % Immature Gran % (Auto) 0.4 (0.001-0.429) % Nucleat RBC Rel Count 0.0 (0.00-0.2) % Eos # (Auto) 0.02 L (0.04-0.54) x10^3/uL Immature Gran # (Auto) 0.04 H (0.001-0.031) x10^3u/L Absolute Lymphs (auto) 1.22 L (1.32-3.57) x10^3/uL Absolute Monos (auto) 0.97 H (0.30-0.82) x10^3/uL Absolute Nucleated RBC 0.00 (0.00-0.012) x10^3u/L Lymphocytes % 13.3 L (21.8-53.1) % Monocytes % 10.6 (5.3-12.2) % Eosinophils % 0.2 L (0.8-7.0) % Basophils % 0.7 (0.2-1.2) % Absolute Granulocytes 6.86 H (1.78-5.38) x10^3/uL Basophils # 0.06 (0.01-0.08) x10^3/uL Sodium 141 (135-145) mmol/L Potassium 4.0 (3.5-5.1) mmol/L Chloride 102 (98-107) mmol/L Carbon Dioxide 25 (22-30) mmol/L Anion Gap 17.2 H (5-15) MEQ/L BUN 14 (9-20) mg/dL Creatinine 1.01 (0.66-1.25) mg/dL Estimated GFR 92.9 ML/MIN Glucose 121 H (74-106) mg/dL Calcium 9.5 (8.4-10.2) mg/dL Total Bilirubin 0.90 (0.2-1.3) mg/dL AST 36 (17-59) U/L ALT 47 (0-50) U/L Alkaline Phosphatase 66 (38-126) U/L Troponin I (0.000-0.033) ng/mL Serum Total Protein 8.2 (6.3-8.2) g/dL Albumin 4.6 (3.5-5.0) g/dL Monoscreen NEGATIVE (NEGATIVE) Influenza Type A Ag (NEGATIVE) Influenza Type B Ag (NEGATIVE) RSV (PCR) (NEGATIVE) SARS-CoV-2 (PCR) (NEGATIVE) Group A Strep Antibody (NEGATIVE) 12/21/23 12/21/23 12/21/23 Range/Units 09:20 09:30 11:05 WBC (4.23-9.07) x10^3/uL RBC (4.63-6.08) x10^6/uL Hgb (13.7-17.5) g/dL Hct (40.1-51.0) % MCV (79.0-92.2) fL MCH (25.7-32.2) pg MCHC (32.3-36.5) g/dL RDW (11.6-14.4) % Plt Count (163-337) x10^3/uL MPV (9.4-12.4) fL Gran % (34.0-67.9) % Immature Gran % (Auto) (0.001-0.429) % Nucleat RBC Rel Count (0.00-0.2) % Eos # (Auto) (0.04-0.54) x10^3/uL Immature Gran # (Auto) (0.001-0.031) x10^3u/L Absolute Lymphs (auto) (1.32-3.57) x10^3/uL Absolute Monos (auto) (0.30-0.82) x10^3/uL Absolute Nucleated RBC (0.00-0.012) x10^3u/L Lymphocytes % (21.8-53.1) % Monocytes % (5.3-12.2) % Eosinophils % (0.8-7.0) % Basophils % (0.2-1.2) % Absolute Granulocytes (1.78-5.38) x10^3/uL Basophils # (0.01-0.08) x10^3/uL Sodium (135-145) mmol/L Potassium (3.5-5.1) mmol/L Chloride (98-107) mmol/L Carbon Dioxide (22-30) mmol/L Anion Gap (5-15) MEQ/L BUN (9-20) mg/dL Creatinine (0.66-1.25) mg/dL Estimated GFR ML/MIN Glucose (74-106) mg/dL Calcium (8.4-10.2) mg/dL Total Bilirubin (0.2-1.3) mg/dL AST (17-59) U/L ALT (0-50) U/L Alkaline Phosphatase (38-126) U/L Troponin I < 0.012 (0.000-0.033) ng/mL Serum Total Protein (6.3-8.2) g/dL Albumin (3.5-5.0) g/dL Monoscreen (NEGATIVE) Influenza Type A Ag NEGATIVE (NEGATIVE) Influenza Type B Ag NEGATIVE (NEGATIVE) RSV (PCR) NEGATIVE (NEGATIVE) SARS-CoV-2 (PCR) NEGATIVE (NEGATIVE) Group A Strep Antibody NOT DETECTED (NEGATIVE) - Radiology Impressions Radiology Exams & Impressions: Radiology Procedures Category Date Time Status NECK WITH CONTRAST [CT] Stat Exams 12/21/23 09:07 Completed Assessment/Plan (1) Acute bacterial tonsillitis Current Visit: Yes Status: Acute Assessment & Plan: -Strep/mono negative -CT neck showing tonsilitis with left micro abscess -IVF -Dexamethasone 10mg daily -Clindamycin/cefepime -CLD Code(s): J03.80 - ACUTE TONSILLITIS DUE TO OTHER SPECIFIED ORGANISMS; B96.89 - OTH BACTERIAL AGENTS THE CAUSE OF DISEASES CLASSD [id number] (2) Dehydration Current Visit: Yes Status: Acute Assessment & Plan: -IVF -ADAT -secondary to tonsilitis Code(s): E86.0 - DEHYDRATION (3) High anion gap metabolic acidosis Current Visit: Yes Status: Acute Assessment & Plan: -secondary to tonsilitis -IVF - trend VTE: bilateral scd PPI protonix Dispo 1-2 days Code status Full Code(s): E87.29 - OTHER ACIDOSIS
[2023-12-21] MEDS ORDERED: FEVERALL 650 MG PR PRN (13:57)
[2023-12-21] MEDS ORDERED: Zofran 4 MG/2 ML VIAL IV PRN (13:57)
[2023-12-21] MEDS: Sodium Chloride 0.9% 1000 ML 1,000 ML IV SCH (14:22)
--- NOTE | 2023-12-21 16:28 | XRAY ---
Indication: Fever and cough. Comparison: July 23, 2006 Portable apical lordotic chest less inflated and remains clear. Heart not enlarged. Bony thorax intact. Impression: Continued nonacute chest.
[2023-12-21] MEDS: CHLORASEPTIC SPRAY 180 ML PO PRN (16:59)
[2023-12-21] MEDS: ClINDAMYCIN Phosphate IVPB 300 MG/50 ML IVPB IV SCH (18:22)
[2023-12-21] MEDS: TORAdol 30 mg Injection IV PRN (18:59)
[2023-12-21] MEDS ORDERED: Maxipime 2 GM ONE (21:35)
[2023-12-21] MEDS ORDERED: D5w 100ML Mini Bag 100 ML 100 ML IV ONE (21:36)
[2023-12-21] MEDS: Maxipime 2 GM** 2 G in Dextrose 5%/Water IV Soln. 100ML PLUS BAG 100 ML IV SCH (21:54)
[2023-12-21] MEDS ORDERED: MAXIPIME 1 GM** 1 G in Dextrose 5%/Water IV Soln. 100ML PLUS BAG 100 ML IV SCH (22:00)
[2023-12-21 22:43] LABS: Amphetamine,Urine NEGATIVE (NEGATIVE); Barbiturate,Urine NEGATIVE (NEGATIVE); Benzodiazepine,Urine NEGATIVE (NEGATIVE); Cocaine,Urine NEGATIVE (NEGATIVE); Methadone,Urine NEGATIVE (NEGATIVE); Opiate,Urine NEGATIVE (NEGATIVE); PCP,Urine NEGATIVE (NEGATIVE); THC,Urine NEGATIVE (NEGATIVE)
--- NOTE | 2023-12-22 05:24 | PCM.NOTE ---
Date and Time: 12/22/23523 Subjective Assessment: is a 48 year old male with a pmhx of HTN and hypothyroid who presented to ED 12/21/23 with complaints of a sore throat. Patient reports symptoms initially started 12/15/23 with a sore throat, subjective fevers, and chills. He sought OP treatment at urgent care on 12/18/23. He states he tested negative for strep but was given abx which did not relieve symptoms. He presented to his PCP 12/20/23 and was given a steroid and antibiotic injection - again with no relief of symptoms. He has been unable to eat/drink.Upon arrival to ED patient was tachycardic and hypertensive. CT neck showing tonsilitis with left micro abscess. Lab findings with mild leukocytosis and elevated anion gap. [place]/strep screen negative. Patient given IVF bolus, dexamethasone, toradol, and clindamycin. Plan for continued steroid/abx. 12/22/23: Patient feeling better today. Feels like swelling in throat has improved, easier to swallow, requesting soft diet. Still having some throat pain. Labs/vitals stable. Will continue abx/steroids, possible discharge tomorrow. - Review of Systems Constitutional: No Symptoms Eyes: No Symptoms Ears, Nose, & Throat: Throat Pain, Throat Swelling, Painful Swallowing Respiratory: No Symptoms Cardiac: No Symptoms Abdominal/Gastrointestinal: No Symptoms Genitourinary Symptoms: No Symptoms Musculoskeletal: No Symptoms Skin: No Symptoms Neurological: No Symptoms Psychological: No Symptoms Endocrine: No Symptoms Hematologic/Lymphatic: No Symptoms Immunological/Allergic: No Symptoms Objective Exam General Appearance: no apparent distress Neurologic Exam: alert, oriented x 3, cooperative Skin Exam: normal color Eye Exam: PERRL Ears, Nose, Throat Exam: moist mucous membranes, pharyngeal erythema, tonsillar exudate Neck Exam: lymphadenopathy (improved) Respiratory Exam: normal breath sounds, lungs clear Cardiovascular Exam: regular rate/rhythm, normal heart sounds Gastrointestinal/Abdomen Exam: soft, normal bowel sounds Extremity Exam: normal inspection Back Exam: normal inspection Objective Data Vital Signs: Vital Signs - 24 hr Temp Pulse Resp BP BP Pulse Ox 12/22/23 04:00 97.8 F 81 16 161/108 94 L 12/22/23 00:00 98.1 F 77 18 142/89 96 12/21/23 21:29 98 12/21/23 20:00 98.0 F 80 17 139/78 95 12/21/23 16:00 97.6 F 75 18 117/61 98 12/21/23 15:11 92 L 12/21/23 13:20 97.3 F 75 16 171/108 96 12/21/23 13:16 97.3 F 75 18 171/108 96 12/21/23 13:00 78 18 150/99 95 12/21/23 12:30 70 16 149/109 97 12/21/23 12:00 140/98 94 L 12/21/23 11:42 100 12/21/23 11:30 145/100 93 L 12/21/23 11:13 139/101 94 L 12/21/23 11:12 88 L 12/21/23 11:10 95 12/21/23 11:00 83 18 139/101 94 L 12/21/23 10:50 93 L 12/21/23 10:40 94 L 12/21/23 10:30 93 L 12/21/23 10:20 92 L 12/21/23 10:10 92 L 12/21/23 10:00 78 16 90 L 12/21/23 09:50 94 L 12/21/23 09:40 88 16 93 L 12/21/23 09:09 100 12/21/23 09:06 97.7 F 106 H 18 145/107 100 Pain Assessment - Last Documented Pain Intensity 4 Pain Scale Used 0-10 Pain Scale Intake and Output: Intake & Output 12/19/23 12/20/23 12/21/23 12/22/23 11:59 11:59 11:59 11:59 Intake Total 3950 Output Total 125 Balance 3825 Weight 106.9 kg Lab Results: Lab Results-Last 24 Hours 12/21/23 12/21/23 12/21/23 Range/Units 09:18 09:18 09:18 WBC 9.2 H (4.23-9.07) x10^3/uL RBC 5.17 (4.63-6.08) x10^6/uL Hgb 15.7 (13.7-17.5) g/dL Hct 45.9 (40.1-51.0) % MCV 88.8 (79.0-92.2) fL MCH 30.4 (25.7-32.2) pg MCHC 34.2 (32.3-36.5) g/dL RDW 12.2 (11.6-14.4) % Plt Count 208 (163-337) x10^3/uL MPV 10.3 (9.4-12.4) fL Gran % 74.8 H (34.0-67.9) % Immature Gran % (Auto) 0.4 (0.001-0.429) % Nucleat RBC Rel Count 0.0 (0.00-0.2) % Eos # (Auto) 0.02 L (0.04-0.54) x10^3/uL Immature Gran # (Auto) 0.04 H (0.001-0.031) x10^3u/L Absolute Lymphs (auto) 1.22 L (1.32-3.57) x10^3/uL Absolute Monos (auto) 0.97 H (0.30-0.82) x10^3/uL Absolute Nucleated RBC 0.00 (0.00-0.012) x10^3u/L Lymphocytes % 13.3 L (21.8-53.1) % Monocytes % 10.6 (5.3-12.2) % Eosinophils % 0.2 L (0.8-7.0) % Basophils % 0.7 (0.2-1.2) % Absolute Granulocytes 6.86 H (1.78-5.38) x10^3/uL Basophils # 0.06 (0.01-0.08) x10^3/uL Sodium 141 (135-145) mmol/L Potassium 4.0 (3.5-5.1) mmol/L Chloride 102 (98-107) mmol/L Carbon Dioxide 25 (22-30) mmol/L Anion Gap 17.2 H (5-15) MEQ/L BUN 14 (9-20) mg/dL Creatinine 1.01 (0.66-1.25) mg/dL Estimated GFR 92.9 ML/MIN Glucose 121 H (74-106) mg/dL Calcium 9.5 (8.4-10.2) mg/dL Total Bilirubin 0.90 (0.2-1.3) mg/dL AST 36 (17-59) U/L ALT 47 (0-50) U/L Alkaline Phosphatase 66 (38-126) U/L Troponin I (0.000-0.033) ng/mL Serum Total Protein 8.2 (6.3-8.2) g/dL Albumin 4.6 (3.5-5.0) g/dL Urine Opiates Level (NEGATIVE) Ur Methadone (NEGATIVE) Urine Barbiturates (NEGATIVE) Ur Phencyclidine (PCP) (NEGATIVE) Urine Amphetamine (NEGATIVE) U Benzodiazepine Level (NEGATIVE) Urine Cocaine (NEGATIVE) Urine Marijuana (THC) (NEGATIVE) Monoscreen NEGATIVE (NEGATIVE) Influenza Type A Ag (NEGATIVE) Influenza Type B Ag (NEGATIVE) RSV (PCR) (NEGATIVE) SARS-CoV-2 (PCR) (NEGATIVE) Group A Strep Antibody (NEGATIVE) 12/21/23 12/21/23 12/21/23 Range/Units 09:20 09:30 11:05 WBC (4.23-9.07) x10^3/uL RBC (4.63-6.08) x10^6/uL Hgb (13.7-17.5) g/dL Hct (40.1-51.0) % MCV (79.0-92.2) fL MCH (25.7-32.2) pg MCHC (32.3-36.5) g/dL RDW (11.6-14.4) % Plt Count (163-337) x10^3/uL MPV (9.4-12.4) fL Gran % (34.0-67.9) % Immature Gran % (Auto) (0.001-0.429) % Nucleat RBC Rel Count (0.00-0.2) % Eos # (Auto) (0.04-0.54) x10^3/uL Immature Gran # (Auto) (0.001-0.031) x10^3u/L Absolute Lymphs (auto) (1.32-3.57) x10^3/uL Absolute Monos (auto) (0.30-0.82) x10^3/uL Absolute Nucleated RBC (0.00-0.012) x10^3u/L Lymphocytes % (21.8-53.1) % Monocytes % (5.3-12.2) % Eosinophils % (0.8-7.0) % Basophils % (0.2-1.2) % Absolute Granulocytes (1.78-5.38) x10^3/uL Basophils # (0.01-0.08) x10^3/uL Sodium (135-145) mmol/L Potassium (3.5-5.1) mmol/L Chloride (98-107) mmol/L Carbon Dioxide (22-30) mmol/L Anion Gap (5-15) MEQ/L BUN (9-20) mg/dL Creatinine (0.66-1.25) mg/dL Estimated GFR ML/MIN Glucose (74-106) mg/dL Calcium (8.4-10.2) mg/dL Total Bilirubin (0.2-1.3) mg/dL AST (17-59) U/L ALT (0-50) U/L Alkaline Phosphatase (38-126) U/L Troponin I < 0.012 (0.000-0.033) ng/mL Serum Total Protein (6.3-8.2) g/dL Albumin (3.5-5.0) g/dL Urine Opiates Level (NEGATIVE) Ur Methadone (NEGATIVE) Urine Barbiturates (NEGATIVE) Ur Phencyclidine (PCP) (NEGATIVE) Urine Amphetamine (NEGATIVE) U Benzodiazepine Level (NEGATIVE) Urine Cocaine (NEGATIVE) Urine Marijuana (THC) (NEGATIVE) Monoscreen (NEGATIVE) Influenza Type A Ag NEGATIVE (NEGATIVE) Influenza Type B Ag NEGATIVE (NEGATIVE) RSV (PCR) NEGATIVE (NEGATIVE) SARS-CoV-2 (PCR) NEGATIVE (NEGATIVE) Group A Strep Antibody NOT DETECTED (NEGATIVE) 12/21/23 12/21/23 12/21/23 Range/Units 14:29 18:10 21:45 WBC (4.23-9.07) x10^3/uL RBC (4.63-6.08) x10^6/uL Hgb (13.7-17.5) g/dL Hct (40.1-51.0) % MCV (79.0-92.2) fL MCH (25.7-32.2) pg MCHC (32.3-36.5) g/dL RDW (11.6-14.4) % Plt Count (163-337) x10^3/uL MPV (9.4-12.4) fL Gran % (34.0-67.9) % Immature Gran % (Auto) (0.001-0.429) % Nucleat RBC Rel Count (0.00-0.2) % Eos # (Auto) (0.04-0.54) x10^3/uL Immature Gran # (Auto) (0.001-0.031) x10^3u/L Absolute Lymphs (auto) (1.32-3.57) x10^3/uL Absolute Monos (auto) (0.30-0.82) x10^3/uL Absolute Nucleated RBC (0.00-0.012) x10^3u/L Lymphocytes % (21.8-53.1) % Monocytes % (5.3-12.2) % Eosinophils % (0.8-7.0) % Basophils % (0.2-1.2) % Absolute Granulocytes (1.78-5.38) x10^3/uL Basophils # (0.01-0.08) x10^3/uL Sodium (135-145) mmol/L Potassium (3.5-5.1) mmol/L Chloride (98-107) mmol/L Carbon Dioxide (22-30) mmol/L Anion Gap (5-15) MEQ/L BUN (9-20) mg/dL Creatinine (0.66-1.25) mg/dL Estimated GFR ML/MIN Glucose (74-106) mg/dL Calcium (8.4-10.2) mg/dL Total Bilirubin (0.2-1.3) mg/dL AST (17-59) U/L ALT (0-50) U/L Alkaline Phosphatase (38-126) U/L Troponin I < 0.012 < 0.012 (0.000-0.033) ng/mL Serum Total Protein (6.3-8.2) g/dL Albumin (3.5-5.0) g/dL Urine Opiates Level NEGATIVE (NEGATIVE) Ur Methadone NEGATIVE (NEGATIVE) Urine Barbiturates NEGATIVE (NEGATIVE) Ur Phencyclidine (PCP) NEGATIVE (NEGATIVE) Urine Amphetamine NEGATIVE (NEGATIVE) U Benzodiazepine Level NEGATIVE (NEGATIVE) Urine Cocaine NEGATIVE (NEGATIVE) Urine Marijuana (THC) NEGATIVE (NEGATIVE) Monoscreen (NEGATIVE) Influenza Type A Ag (NEGATIVE) Influenza Type B Ag (NEGATIVE) RSV (PCR) (NEGATIVE) SARS-CoV-2 (PCR) (NEGATIVE) Group A Strep Antibody (NEGATIVE) Radiology Exams: Radiology Procedures Category Date Time Status CHEST 1 VIEW (PORTABLE) Urgent Exams 12/21/23 14:50 Completed NECK WITH CONTRAST [CT] Stat Exams 12/21/23 09:07 Completed Assessment/Plan (1) Acute bacterial tonsillitis Current Visit: Yes Status: Acute Assessment & Plan: -Strep/mono negative -CT neck showing tonsilitis with left micro abscess -IVF -Dexamethasone 10mg daily -Clindamycin/cefepime -CLD 12/21: -Patient requesting soft diet - ADAT -continue steroid/abx Code(s): J03.80 - ACUTE TONSILLITIS DUE TO OTHER SPECIFIED ORGANISMS; B96.89 - OTH BACTERIAL AGENTS THE CAUSE OF DISEASES CLASSD ELSWHR (2) Dehydration Current Visit: Yes Status: Acute Assessment & Plan: -IVF -ADAT -secondary to tonsilitis Code(s): E86.0 - DEHYDRATION (3) High anion gap metabolic acidosis Current Visit: Yes Status: Acute Assessment & Plan: -secondary to tonsilitis -IVF - trend 12/21: -resolved VTE: bilateral scd PPI protonix Dispo 1-2 days Code status Full Code(s): J03.80 - ACUTE TONSILLITIS DUE TO OTHER SPECIFIED ORGANISMS; B96.89 - OTH BACTERIAL AGENTS THE CAUSE OF DISEASES CLASSD ELSWHR (2) Dehydration Current Visit: Yes Status: Acute Code(s): E86.0 - DEHYDRATION (3) High anion gap metabolic acidosis Current Visit: Yes Status: Acute Code(s): E87.29 - OTHER ACIDOSIS
[2023-12-22 05:28] LABS: Hematocrit 40.9 % (40.1-51.0); Hemoglobin 13.7 g/dL (13.7-17.5); Mean Cell Volume 88.3 fL (79.0-92.2); Mean Corpuscular Hemoglobin 29.6 pg (25.7-32.2); Mean Corpuscular Hgb Concent. 33.5 g/dL (32.3-36.5); Mean Platelet Volume 10.5 fL (9.4-12.4); Platelet Count 213 x10^3/uL (163-337); Red Blood Count 4.63 x10^6/uL (4.63-6.08); Red Cell Distribution Width 12.5 % (11.6-14.4); White Blood Count 9.6 x10^3/uL (4.23-9.07)
[2023-12-22 05:43] LABS: ALBUMIN 3.6 g/dL (3.5-5.0); ANION GAP 11.8 MEQ/L (5-15); BILIRUBIN,TOTAL 0.5 mg/dL (0.2-1.3); Calcium 8.6 mg/dL (8.4-10.2); Creatinine 1 0.84 mg/dL (0.66-1.25); EST GLOMERULAR FILTRATION RATE 108.9 ML/MIN; Potassium 3.8 mmol/L (3.5-5.1); Total Protein 6.7 g/dL (6.3-8.2)
[2023-12-22 07:24] LABS: ATYPICAL LYMPHS 4 %; Lymphocytes 16 % (24-44); Monocyte 10 % (0.0-12.0); Neutrophils 70 % (1.78-5.38); Platelet Estimate NORMAL (NORMAL); Total Cells Counted 100
[2023-12-22] MEDS: Apresoline 25 MG TABLET PO ONE ×2 (07:58→19:56)
[2023-12-22] MEDS: SYNTHROID 88 MCG PO SCH (09:44)
[2023-12-22] MEDS: Decadron 4 MG INJ IV SCH (09:46)
[2023-12-23 04:31] VITALS: RESP 16
--- NOTE | 2023-12-23 05:10 | PCM.NOTE ---
Date and Time: 12/23/23 0509 Subjective Assessment: is a 48 year old male with a pmhx of HTN and hypothyroid who presented to ED 12/21/23 with complaints of a sore throat. Patient reports symptoms initially started 12/15/23 with a sore throat, subjective fevers, and chills. He sought OP treatment at urgent care on 12/18/23. He states he tested negative for strep but was given abx which did not relieve symptoms. He presented to his PCP 12/20/23 and was given a steroid and antibiotic injection - again with no relief of symptoms. He has been unable to eat/drink.Upon arrival to ED patient was tachycardic and hypertensive. CT neck showing tonsilitis with left micro abscess. Lab findings with mild leukocytosis and elevated anion gap. [place]/strep screen negative. Patient given IVF bolus, dexamethasone, toradol, and clindamycin. Plan for continued steroid/abx. 12/22/23: Patient feeling better today. Feels like swelling in throat has improved, easier to swallow, requesting soft diet. Still having some throat pain. Labs/vitals stable. Will continue abx/steroids, possible discharge tomorrow. 12/22: Throat pain and swelling worse today. Unable to eat soft diet today. Repeat neck CT with no new findings. HIV negative. Tonsil grading 4+ on exam. Plan to increase steroid. Will add margarita's magic potion and diflucan. Throat culture pending. Will add STD testing and monkey pox. BP elevated. Start lisinopril. - Review of Systems Constitutional: No Symptoms, Weakness Eyes: No Symptoms Ears, Nose, & Throat: Throat Pain, Throat Swelling, Painful Swallowing Respiratory: No Symptoms Cardiac: No Symptoms Abdominal/Gastrointestinal: No Symptoms Genitourinary Symptoms: No Symptoms Musculoskeletal: No Symptoms Skin: No Symptoms Neurological: No Symptoms Psychological: No Symptoms Endocrine: No Symptoms Hematologic/Lymphatic: No Symptoms Immunological/Allergic: No Symptoms Objective Exam General Appearance: mild distress Neurologic Exam: alert, oriented x 3, cooperative Skin Exam: pale Eye Exam: PERRL Ears, Nose, Throat Exam: dry mucous membranes, pharyngeal erythema, tonsillar exudate Neck Exam: lymphadenopathy Respiratory Exam: normal breath sounds, lungs clear Cardiovascular Exam: regular rate/rhythm, normal heart sounds Gastrointestinal/Abdomen Exam: soft, normal bowel sounds Extremity Exam: normal inspection Back Exam: normal inspection Male Genitalia Exam: deferred Rectal Exam: deferred Objective Data Vital Signs: Vital Signs - 24 hr Temp Pulse Resp BP Pulse Ox 12/23/23 04:00 99.2 F 80 16 164/92 93 L 12/23/23 00:00 99.3 F 80 15 135/87 95 12/22/23 20:00 98.0 F 92 H 18 144/96 94 L 12/22/23 17:25 170/100 12/22/23 17:00 97.5 F 83 18 170/100 96 12/22/23 13:00 97.6 F 83 18 150/96 95 12/22/23 09:05 81 140/83 12/22/23 08:43 95 12/22/23 08:00 97.7 F 77 18 155/104 96 Pain Assessment - Last Documented Pain Intensity 2 Pain Scale Used 0-10 Pain Scale Intake and Output: Intake & Output 12/20/23 12/21/23 12/22/23 12/23/23 11:59 11:59 11:59 11:59 Intake Total 4010 1778 Output Total 125 Balance 3885 1778 Weight 106.9 kg Lab Results: Lab Results-Last 24 Hours 12/22/23 12/22/23 Range/Units 05:16 05:16 WBC 9.6 H (4.23-9.07) x10^3/uL RBC 4.63 (4.63-6.08) x10^6/uL Hgb 13.7 (13.7-17.5) g/dL Hct 40.9 (40.1-51.0) % MCV 88.3 (79.0-92.2) fL MCH 29.6 (25.7-32.2) pg MCHC 33.5 (32.3-36.5) g/dL RDW 12.5 (11.6-14.4) % Plt Count 213 (163-337) x10^3/uL MPV 10.5 (9.4-12.4) fL Segmented Neutrophils 70 H (1.78-5.38) % Lymphocytes (Manual) 16 L (24-44) % Monocytes (Manual) 10 (0.0-12.0) % Atypical Lymphocytes 4 % Platelet Estimate NORMAL (NORMAL) RBC Morphology NORMAL Sodium 139 (135-145) mmol/L Potassium 3.8 (3.5-5.1) mmol/L Chloride 107 (98-107) mmol/L Carbon Dioxide 24 (22-30) mmol/L Anion Gap 11.8 (5-15) MEQ/L BUN 16 (9-20) mg/dL Creatinine 0.84 (0.66-1.25) mg/dL Estimated GFR 108.9 ML/MIN Glucose 133 H (74-106) mg/dL Calcium 8.6 (8.4-10.2) mg/dL Total Bilirubin 0.50 (0.2-1.3) mg/dL AST 41 (17-59) U/L ALT 51 H (0-50) U/L Alkaline Phosphatase 60 (38-126) U/L Serum Total Protein 6.7 (6.3-8.2) g/dL Albumin 3.6 (3.5-5.0) g/dL Radiology Exams: Radiology Procedures Category Date Time Status CHEST 1 VIEW (PORTABLE) Urgent Exams 12/21/23 14:50 Completed NECK WITH CONTRAST [CT] Stat Exams 12/21/23 09:07 Completed Assessment/Plan (1) Acute bacterial tonsillitis Current Visit: Yes Status: Acute Assessment & Plan: -Strep/mono negative -CT neck showing tonsilitis with left micro abscess -IVF -Dexamethasone 10mg daily -Clindamycin/cefepime -CLD 12/21: -Patient requesting soft diet - ADAT -continue steroid/abx 12/22: -increase dexamethasone to BID -Add MM potion/diflucan -Repeat CT neck with no new findings - reidentification of left micro abscess -Test for gonorrhea, HSV, throat culture, EBV, monkeypox Code(s): J03.80 - ACUTE TONSILLITIS DUE TO OTHER SPECIFIED ORGANISMS; B96.89 - OTH BACTERIAL AGENTS THE CAUSE OF DISEASES CLASSD ELSWHR (2) Dehydration Current Visit: Yes Status: Acute Assessment & Plan: -IVF -ADAT -secondary to tonsilitis Code(s): E86.0 - DEHYDRATION (3) High anion gap metabolic acidosis Current Visit: Yes Status: Acute Assessment & Plan: -secondary to tonsilitis -IVF - trend 12/21: -resolved VTE: bilateral scd PPI protonix Dispo 1-2 days Code status Full Code(s): J03.80 - ACUTE TONSILLITIS DUE TO OTHER SPECIFIED ORGANISMS; B96.89 - OTH BACTERIAL AGENTS THE CAUSE OF DISEASES CLASSD ELSWHR Code(s): J03.80 - ACUTE TONSILLITIS DUE TO OTHER SPECIFIED ORGANISMS; B96.89 - OTH BACTERIAL AGENTS THE CAUSE OF DISEASES CLASSD ELSWHR (2) Dehydration Current Visit: Yes Status: Acute Code(s): E86.0 - DEHYDRATION (3) High anion gap metabolic acidosis Current Visit: Yes Status: Acute Code(s): E87.29 - OTHER ACIDOSIS
[2023-12-23 06:44] LABS: BASOPHIL % 0.6 % (0.2-1.2); Basophil (Absolute #) 0.06 x10^3/uL (0.01-0.08); Eosinophil % 0.1 % (0.8-7.0); Eosinophil (Absolute #) 0.01 x10^3/uL (0.04-0.54); Hematocrit 40.9 % (40.1-51.0); Hemoglobin 13.9 g/dL (13.7-17.5); IMMATURE GRAN # 0.31 x10^3u/L (0.001-0.031); Lymphocyte (Absolute #) 2.26 x10^3/uL (1.32-3.57); Lymphocytes % 21.7 % (21.8-53.1); Mean Corpuscular Hemoglobin 29.9 pg (25.7-32.2); Mean Platelet Volume 9.6 fL (9.4-12.4); Monocyte (Absolute #) 1.06 x10^3/uL (0.30-0.82); Monocytes % 10.2 % (5.3-12.2); Neutrophil % 64.4 % (34.0-67.9); Platelet Count 199 x10^3/uL (163-337); Red Blood Count 4.65 x10^6/uL (4.63-6.08); Red Cell Distribution Width 12.2 % (11.6-14.4); White Blood Count 10.4 x10^3/uL (4.23-9.07)
[2023-12-23 06:56] LABS: ALBUMIN 3.4 g/dL (3.5-5.0); ANION GAP 13.3 MEQ/L (5-15); BILIRUBIN,TOTAL 0.5 mg/dL (0.2-1.3); Calcium 8.5 mg/dL (8.4-10.2); Creatinine 1 0.89 mg/dL (0.66-1.25); Potassium 3.7 mmol/L (3.5-5.1); Total Protein 6.5 g/dL (6.3-8.2)
[2023-12-23] MEDS: Zestril 10 MG PO SCH (07:53)
[2023-12-23] MEDS: NORCO 5/325 MG PO PRN (07:53)
[2023-12-23 08:48] LABS: HIV Screen 4th Generation wRfx Non Reactive (Non Reactive)
[2023-12-23] MEDS: DECADRON 10MG INJ. IV SCH ×2 (09:20→22:24)
[2023-12-23] MEDS: Diflucan/Saline 0.2G/100ML PREMIX*** 100 ML IV SCH (10:21)
--- NOTE | 2023-12-23 10:42 | XRAY ---
Indication: Throat microabscess. Multiple contiguous axial images obtained through the neck using 80 cc Isovue 370 contrast. Sagittal and coronal reformatted images obtained. Comparison: December 21, 2023 Grossly stable markedly enlarged and enhancing bilateral palatine tonsils again favoring tonsillitis. Finding again narrows the oropharynx. The left tonsil microabscess also grossly unchanged. Grossly stable prominent bilateral cervical lymphadenopathy. Normal epiglottis. Infraglottic airway widely patent. Parotid and submandibular glands bilaterally symmetric. Thyroid gland enhances homogeneously. Major arteries/veins are normal in course and caliber. Osseous structures intact. Base of brain and lung apices unremarkable. Impression: No change compared to CT exam 2 days ago again demonstrating bilateral tonsillitis with left tonsillar microabscess and reactive bilateral cervical lymphadenopathy. No new abnormalities.
[2023-12-23] MEDS: MARY'S MAGIC MOUTHWASH PO SCH (11:19)
[2023-12-23 16:20] VITALS: O2SAT 93
[2023-12-23] MEDS: Hydromorphone 1 mg/ml Injection IV PRN (16:40)
--- NOTE | 2023-12-23 19:05 | PCM.DS ---
Discharge Summary Date of Admission: 12/21/23 13:07 Date of Discharge: 12/23/23 Admitting Physician: DARLING ONTIVEROS MD Primary Care Provider: JIGNA VALDOVINOS NP Allergies Allergies No Known Drug Allergies Allergy (Verified 12/21/23 13:09) Hospital Summary - Hospital Course Hospital Course: is a 48 year old male with a pmhx of HTN and hypothyroid who presented to ED 12/21/23 with complaints of a sore throat. Patient reports symptoms initially started 12/15/23 with a sore throat, subjective fevers, and chills. He sought OP treatment at urgent care on 12/18/23. He states he tested negative for strep but was given abx which did not relieve symptoms. He presented to his PCP 12/20/23 and was given a steroid and antibiotic injection - again with no relief of symptoms. He has been unable to eat/drink.Upon arrival to ED patient was tachycardic and hypertensive. CT neck showing tonsilitis with left micro abscess. Lab findings with mild leukocytosis and elevated anion gap. [place]/strep screen negative. Patient given IVF bolus, dexamethasone, toradol, and clindamycin. Plan for continued steroid/abx. 12/22/23: Patient feeling better today. Feels like swelling in throat has improved, easier to swallow, requesting soft diet. Still having some throat pain. Labs/vitals stable. Will continue abx/steroids, possible discharge tomorrow. 12/22: Throat pain and swelling worse today. Unable to eat soft diet today. Repeat neck CT with no new findings. HIV negative. Tonsil grading 4+ on exam. Plan to increase steroid. Will add margarita's magic potion and diflucan. Throat culture pending. Will add STD testing and monkey pox. BP elevated. Start lisinopril. Family has requested transfer with with ENT services. He has been accepted at [facility] in [place]. - Vitals & Intake/Output Vital Signs: Vital Signs Temperature 96.7 F 12/23/23 16:18 Pulse Rate 81 12/23/23 16:18 Respiratory Rate 16 12/23/23 16:18 Blood Pressure 137/88 12/23/23 16:18 O2 Sat by Pulse Oximetry 93 L 12/23/23 16:18 Intake & Output: Intake & Output 12/21/23 12/22/23 12/23/23 12/24/23 11:59 11:59 11:59 11:59 Intake Total 4012017 Output Total 125 Balance 3884 2017 2048 Weight 106.9 kg 109 kg - Lab Result Diagrams: 12/23/23 06:35 12/23/23 06:35 Lab Results-Last 24 Hrs: Lab Results-Last 24 Hours 12/21/23 12/23/23 12/23/23 Range/Units 15:18 06:35 06:35 WBC 10.4 H (4.23-9.07) x10^3/uL RBC 4.65 (4.63-6.08) x10^6/uL Hgb 13.9 (13.7-17.5) g/dL Hct 40.9 (40.1-51.0) % MCV 88.0 (79.0-92.2) fL MCH 29.9 (25.7-32.2) pg MCHC 34.0 (32.3-36.5) g/dL RDW 12.2 (11.6-14.4) % Plt Count 199 (163-337) x10^3/uL MPV 9.6 (9.4-12.4) fL Gran % 64.4 (34.0-67.9) % Immature Gran % (Auto) 3.0 H (0.001-0.429) % Nucleat RBC Rel Count 0.0 (0.00-0.2) % Eos # (Auto) 0.01 L (0.04-0.54) x10^3/uL Immature Gran # (Auto) 0.31 H (0.001-0.031) x10^3u/L Absolute Lymphs (auto) 2.26 (1.32-3.57) x10^3/uL Absolute Monos (auto) 1.06 H (0.30-0.82) x10^3/uL Absolute Nucleated RBC 0.00 (0.00-0.012) x10^3u/L Lymphocytes % 21.7 L (21.8-53.1) % Monocytes % 10.2 (5.3-12.2) % Eosinophils % 0.1 L (0.8-7.0) % Basophils % 0.6 (0.2-1.2) % Absolute Granulocytes 6.70 H (1.78-5.38) x10^3/uL Basophils # 0.06 (0.01-0.08) x10^3/uL Sodium 139 (135-145) mmol/L Potassium 3.7 (3.5-5.1) mmol/L Chloride 107 (98-107) mmol/L Carbon Dioxide 23 (22-30) mmol/L Anion Gap 13.3 (5-15) MEQ/L BUN 16 (9-20) mg/dL Creatinine 0.89 (0.66-1.25) mg/dL Estimated GFR 107.0 ML/MIN Glucose 113 H (74-106) mg/dL Calcium 8.5 (8.4-10.2) mg/dL Total Bilirubin 0.50 (0.2-1.3) mg/dL AST 35 (17-59) U/L ALT 57 H (0-50) U/L Alkaline Phosphatase 58 (38-126) U/L Serum Total Protein 6.5 (6.3-8.2) g/dL Albumin 3.4 L (3.5-5.0) g/dL HIV 1&2 Ab/P24 Ag 4thGn Non Reactive (Non Reactive) Group A Strep Antibody (NEGATIVE) 12/23/23 Range/Units 12:30 WBC (4.23-9.07) x10^3/uL RBC (4.63-6.08) x10^6/uL Hgb (13.7-17.5) g/dL Hct (40.1-51.0) % MCV (79.0-92.2) fL MCH (25.7-32.2) pg MCHC (32.3-36.5) g/dL RDW (11.6-14.4) % Plt Count (163-337) x10^3/uL MPV (9.4-12.4) fL Gran % (34.0-67.9) % Immature Gran % (Auto) (0.001-0.429) % Nucleat RBC Rel Count (0.00-0.2) % Eos # (Auto) (0.04-0.54) x10^3/uL Immature Gran # (Auto) (0.001-0.031) x10^3u/L Absolute Lymphs (auto) (1.32-3.57) x10^3/uL Absolute Monos (auto) (0.30-0.82) x10^3/uL Absolute Nucleated RBC (0.00-0.012) x10^3u/L Lymphocytes % (21.8-53.1) % Monocytes % (5.3-12.2) % Eosinophils % (0.8-7.0) % Basophils % (0.2-1.2) % Absolute Granulocytes (1.78-5.38) x10^3/uL Basophils # (0.01-0.08) x10^3/uL Sodium (135-145) mmol/L Potassium (3.5-5.1) mmol/L Chloride (98-107) mmol/L Carbon Dioxide (22-30) mmol/L Anion Gap (5-15) MEQ/L BUN (9-20) mg/dL Creatinine (0.66-1.25) mg/dL Estimated GFR ML/MIN Glucose (74-106) mg/dL Calcium (8.4-10.2) mg/dL Total Bilirubin (0.2-1.3) mg/dL AST (17-59) U/L ALT (0-50) U/L Alkaline Phosphatase (38-126) U/L Serum Total Protein (6.3-8.2) g/dL Albumin (3.5-5.0) g/dL HIV 1&2 Ab/P24 Ag 4thGn (Non Reactive) Group A Strep Antibody NOT DETECTED (NEGATIVE) Micro Results-Entire Visit: Microbiology 12/21/23 09:20 Blood Culture - Preliminary Blood 12/21/23 09:18 Blood Culture - Preliminary Blood - Radiology Exams Ordered Rad Exams-Entire Visit: Radiology Procedures Category Date Time Status NECK WITH CONTRAST [CT] Stat Exams 12/23/23 09:14 Completed Final Diagnosis/Problem List - Final Discharge Diagnosis/Problem (1) Acute bacterial tonsillitis Current Visit: Yes Status: Acute Code(s): J03.80 - ACUTE TONSILLITIS DUE TO OTHER SPECIFIED ORGANISMS; B96.89 - OTH BACTERIAL AGENTS THE CAUSE OF DISEASES CLASSD [id number] (2) Dehydration Current Visit: Yes Status: Acute Code(s): E86.0 - DEHYDRATION (3) High anion gap metabolic acidosis Current Visit: Yes Status: Acute Code(s): E87.29 - OTHER ACIDOSIS - Discharge Disposition: DC TO OTHER HOSP Condition: Stable Prescriptions: New Clindamycin 300 mg/50 ml [ClINDAMYCIN Phosphate IVPB] 300 mg IV Q6HT iv piggy Dexamethasone Sod Phosphate [Decadron 10Mg Inj.] 10 mg IV BID Fluconazole 200 mg/100 ml [Diflucan/Saline 0.2G/100ML PREMIX] 200 mg IV Q24H Hydromorphone 1 mg/1Ml Inj [Hydromorphone 1 mg/ml Injection] 0.5 mg IV Q4H PRN PRN PRN Reason: Pain Cefepime HCl 2 gm [Maxipime 2 GM] 2 g IV Q12HT Lisinopril 10 mg [Zestril 10 MG] 10 mg PO DAILY tablet Ondansetron HCl 4 mg/2 ml [Zofran 4 MG/2 ML VIAL] 4 mg IV Q6H PRN PRN PRN Reason: Nausea/Vomiting Continue Levothyroxine Sodium 88 Mcg [Synthroid 88 Mcg] 88 mcg PO DAILY Discontinued Allopurinol 100 mg [Zyloprim 100 mg] 100 mg PO DAILY Follow up with: JIGNA VALDOVINOS NP [Primary Care Provider] -
[2023-12-23 20:23] VITALS: BP 150/98; PULSE 82; TEMP 98.4
[2023-12-24 17:33] LABS: EBV Ab VCA, IgM <36.0 U/mL (0.0-35.9)
== END 2023-12-23 23:35 ==
LOC: ED 08:53 → MED SURG 13:07
PROVIDERS: ADMIT Internal Medicine; ATTEND Internal Medicine
DX: J03.80 Acute tonsillitis due to other specified organisms (principal); B96.89 Other specified bacterial agents as the cause of diseases classified elsewhere; E86.0 Dehydration; E87.29 Other acidosis; I10 Essential (primary) hypertension; E03.9 Hypothyroidism, unspecified; D72.829 Elevated white blood cell count, unspecified; Z79.899 Other long term (current) drug therapy
CPT/HCPCS: 0241U; 36000; 36415; 70491; 71045; 80053; 80307; 84484; 85025; 86308; 86664; 86665; 87040; 87070; 87255; 87389; 87593; 87651; 93041; 94760; 94762; 96365; 96374; 96375; 99285; Q3014; 93268; J0692; J1100; J1170; J1450; J1885; A9270-GY; G0378